=== PATIENT | female | born 1960 | race Caucasian/White ===

== ENCOUNTER 2023-08-23 12:49 | Emergency (ER) | payer BC ==
[~2023-08-23] VITALS: Ht 160 cm; Wt 83.9 kg
[2023-08-23] MEDS ORDERED: BISA10SU95 RC (13:13)
[2023-08-23] MEDS ORDERED: ERGO50CA PO (13:13)
[2023-08-23] MEDS ORDERED: METO25TA6 PO (13:13)
[2023-08-23] MEDS ORDERED: ROSU20TA2 PO (13:13)
[2023-08-23] MEDS ORDERED: PROCTO MED HC TP (13:13)
[2023-08-23] MEDS ORDERED: METF-440 PO (13:13)
[2023-08-23] MEDS ORDERED: MAGNESIUM HYDROXIDE PO (13:13)
[2023-08-23] MEDS ORDERED: IBUP-1955 PO (13:13)
[2023-08-23] MEDS ORDERED: OMEG1CAP40 PO (13:13)
[2023-08-23] MEDS ORDERED: LOSA25TA27 PO (13:13)
[2023-08-23 13:58] LABS: CALCIUM 9.4 mg/dL (8.5-10.1); CARBON DIOXIDE 26 mmol/L (21-32); CHLORIDE 106 mmol/L (98-107); CREATININE 0.6 mg/dL (0.6-1.3); GLUCOSE 146 mg/dL (74-106); POTASSIUM 3.9 mmol/L (3.5-5.1); SODIUM SERUM 144 mmol/L (136-145); UREA NITROGEN, BLOOD 10 mg/dL (7-18)
[2023-08-23 14:05] LABS: BASOPHILS # (AUTO) 0.2 K/UL (0.0-0.2); BASOPHILS % (AUTO) 2.2 % (0.0-2.0); DIFFERENTIAL COMMENT 0; EOSINOPHILS # (AUTO) 0.1 K/uL (0.0-0.7); EOSINOPHILS % (AUTO) 0.7 % (0.0-7.0); HEMATOCRIT 37.5 % (31.2-41.9); HEMOGLOBIN 11.8 g/dL (10.9-14.3); LYMPHOCYTES # (AUTO) 1.2 K/uL (0.8-4.8); LYMPHOCYTES % (AUTO) 12.9 % (20.5-51.5); MEAN CORPUSCULAR HGB CONC 31 g/dL (32.3-35.6); MEAN CORPUSCULAR VOLUME 79.7 fL (75.5-95.3); MONOCYTES # (AUTO) 0.4 K/uL (0.1-1.30); MONOCYTES % (AUTO) 4.6 % (0.0-11.0); NEUTROPHILS # (AUTO) 7.3 K/uL (1.8-8.9); NEUTROPHILS % (AUTO) 79.6 % (38.5-71.5); PLATELET COUNT (AUTO) 336 K/uL (179-408); WHITE BLOOD COUNT (AUTO) 9.2 K/uL (3.8-11.8)
[2023-08-23 14:10] LABS: ALANINE AMINOTRANSFERASE 21 U/L (14-59); ALBUMIN 3.6 g/dL (3.4-5.0); ALKALINE PHOSPHATASE 74 U/L (50-136); ASPARTATE AMINOTRANSFERASE < 5 U/L (15-37); BILIRUBIN,DIRECT 0.1 mg/dL (0.0-0.2); BILIRUBIN,TOTAL 0.3 mg/dL (0.2-1.0); NT-PRO BNP 197 pg/mL (0-125); TOTAL PROTEIN, SERUM 6.9 g/dL (6.4-8.2)
[2023-08-23 15:36] VITALS: BP 133/72; O2SAT 98
== END 2023-08-23 15:37 | disposition left against medical advice (07) ==
LOC: ER 12:49
DX: R07.89 Other chest pain (principal); E11.9 Type 2 diabetes mellitus without complications; Z98.890 Other specified postprocedural states; Z79.899 Other long term (current) drug therapy; Z79.84 Long term (current) use of oral hypoglycemic drugs; Z79.1 Long term (current) use of non-steroidal anti-inflammatories (NSAID)
CPT/HCPCS: 36415; 71045; 84484; 85025; 85730; 93005; A4606; A4663

== ENCOUNTER 2024-05-21 11:20 | Emergency (ER) | payer BC ==
[~2024-05-21] VITALS: Ht 162.6 cm; Wt 91.2 kg
[~2024-05-21 11:20] MED LIST: BISA10SU95 RC; ERGO50CA PO; IBUP-1955 PO; LOSA25TA27 PO; MAGNESIUM HYDROXIDE PO; METF-440 PO; METO25TA6 PO; OMEG1CAP40 PO; PROCTO MED HC TP; ROSU20TA2 PO
[2024-05-21] MEDS ORDERED: diphenhydrAMINE 50 MG/1 ML VIAL ONE (12:26)
[2024-05-21] MEDS ORDERED: HYDROMORPHONE 1 MG/1 ML DISP.SYRIN ONE ×2 (12:27→14:15)
[2024-05-21] MEDS: diphenhydrAMINE 50 MG/1 ML VIAL IV ONE (12:40)
[2024-05-21] MEDS: HYDROMORPHONE 1 MG/1 ML DISP.SYRIN IV ONE ×2 (12:42→14:18)
[2024-05-21 14:33] LABS: BASOPHILS # (AUTO) 0.1 K/UL (0.0-0.2); BASOPHILS % (AUTO) 1.2 % (0.0-2.0); EOSINOPHILS % (AUTO) 0.6 % (0.0-7.0); HEMATOCRIT 39.5 % (31.2-41.9); HEMOGLOBIN 12.6 g/dL (10.9-14.3); LYMPHOCYTES # (AUTO) 1.6 K/uL (0.8-4.8); LYMPHOCYTES % (AUTO) 20.2 % (20.5-51.5); MEAN CORPUSCULAR HGB CONC 32 g/dL (32.3-35.6); MEAN CORPUSCULAR VOLUME 78.1 fL (75.5-95.3); MONOCYTES # (AUTO) 0.3 K/uL (0.1-1.30); MONOCYTES % (AUTO) 4.2 % (0.0-11.0); NEUTROPHILS # (AUTO) 5.8 K/uL (1.8-8.9); NEUTROPHILS % (AUTO) 73.8 % (38.5-71.5); PLATELET COUNT (AUTO) 327 K/uL (179-408); RED BLOOD CELL COUNT(AUTO) 5.05 MIL/uL (3.63-4.92); RED CELL DISTRIBUTION WIDTH 15.6 % (12.3-17.7); WHITE BLOOD COUNT (AUTO) 7.9 K/uL (3.8-11.8)
[2024-05-21 14:41] LABS: CALCIUM 9.5 mg/dL (8.5-10.1); CARBON DIOXIDE 26 mmol/L (21-32); CHLORIDE 104 mmol/L (98-107); CREATININE 0.4 mg/dL (0.6-1.3); GLUCOSE 131 mg/dL (74-106); POTASSIUM 3.8 mmol/L (3.5-5.1); SODIUM SERUM 142 mmol/L (136-145); UREA NITROGEN, BLOOD 9 mg/dL (7-18)
[2024-05-21 14:42] LABS: DIFFERENTIAL COMMENT 1
[2024-05-21 14:53] LABS: ALANINE AMINOTRANSFERASE 21 U/L (14-59); ALBUMIN 3.7 g/dL (3.4-5.0); ALKALINE PHOSPHATASE 82 U/L (50-136); ASPARTATE AMINOTRANSFERASE 10 U/L (15-37); BILIRUBIN,DIRECT 0.1 mg/dL (0.0-0.2); BILIRUBIN,TOTAL 0.2 mg/dL (0.2-1.0); NT-PRO BNP 228 pg/mL (0-125); TOTAL PROTEIN, SERUM 6.9 g/dL (6.4-8.2)
[2024-05-21 15:45] VITALS: O2SAT 95
[2024-05-21] MEDS ORDERED: HYDR2TAB4 PO (15:46)
== END 2024-05-21 15:50 | disposition home or self-care (01) ==
LOC: ER 11:22
DX: M54.16 Radiculopathy, lumbar region (principal); E11.9 Type 2 diabetes mellitus without complications; E78.5 Hyperlipidemia, unspecified; I10 Essential (primary) hypertension; K57.30 Diverticulosis of large intestine without perforation or abscess without bleeding; R06.02 Shortness of breath; R07.9 Chest pain, unspecified; Z79.84 Long term (current) use of oral hypoglycemic drugs; Z79.899 Other long term (current) drug therapy; Z87.19 Personal history of other diseases of the digestive system; Z96.652 Presence of left artificial knee joint
CPT/HCPCS: 36415; 71045; 84484; 85025; 85651; 85730; A4606; A4663; J1171; J1200